=== PATIENT | female | born 1990 | race Caucasian/White ===

== ENCOUNTER 2016-08-09 07:06 | Emergency (ER) | payer BC, MEDICAID ==
[2016-08-09 07:20] VITALS: BP 100/85
[2016-08-09] MEDS ORDERED: Ondansetron ODT TAB* 4 MG PO ONE (07:38)
--- NOTE | 2016-08-09 07:39 | UC ---
Respiratory Complaint HPI - HPI Summary HPI Summary: SUDDEN ONSET LAST NIGHT OF COUGH, SOB AND NAUSEA. VOMITED THIS MORNING ON THE WAY TO WORK. FEELS VERY FATIGUED. NO FEVER, ST, EAR PAIN OR DIARRHEA. - History of Current Complaint Chief Complaint: UCRespiratory Stated Complaint: VOMITING SOB ASTHMA Time Seen by Provider: 08/09/16 07:21 Hx Obtained From: Patient Hx Last Menstrual Period: on nuva ring periosd irregular Onset/Duration: Sudden Onset, Lasting Hours, Still Present Timing: Constant Severity Initially: Moderate Severity Currently: Moderate Pain Intensity: 0 Pain Scale Used: 0-10 Numeric Character: Cough: Nonproductive Aggravating Factors: Nothing Alleviating Factors: Nothing Associated Signs And Symptoms: Positive: Dyspnea, Wheezing - Allergies/Home Medications Allergies/Adverse Reactions: Allergies Allergy/AdvReac Type Severity Reaction Status Date / Time No Known Drug Allergy Allergy Unknown Verified 12/06/15 10:34 Reaction Details Bees Allergy Severe Anaphylatic Uncoded 12/06/15 10:34 Shock Home Medications: Home Medications Dextromethorphan-Phenylephrine [Day Time Multi-Symptom Co 10-5-325 mg] 1 cap PO SEE INSTRUCTIONS 08/09/16 [History Confirmed 08/09/16] [id number] [Nyquil Severe Cold/Flu 5-6.25-10-325 mg/15Ml] 1 liq PO SEE INSTRUCTIONS 08/09/16 [History Confirmed 08/09/16] PMH/Surg Hx/FS Hx/Imm Hx Endocrine History Of: Denies: Diabetes, Thyroid Disease Cardiovascular History Of: Denies: Cardiac Disorders, Hypertension Respiratory History Of: Reports: Asthma Denies: COPD GI/ History Of: Denies: Ulcer - Surgical History Surgical History: Yes Surgery Procedure, Year, and Place: cse - 2007 - Family History Known Family History: Negative: Blood Disorder - Social History Alcohol Use: Rare Substance Use Type: None Smoking Status (MU): Heavy Every Day Tobacco Smoker - Immunization History Most Recent Influenza Vaccination: 08/14/14 Most Recent Tetanus Shot: 12/17/14 Most Recent Pneumonia Vaccination: never Review of Systems Constitutional: Negative ENT: Negative Respiratory: Shortness Of Breath, Cough Cardiovascular: Negative Gastrointestinal: Vomiting, Other - NAUSEA All Other Systems Reviewed And Are Negative: Yes Physical Exam Triage Information Reviewed: Yes Appearance: Well-Appearing, No Pain Distress, Well-Nourished Vital Signs: Initial Vital Signs Temp 98.7 F 08/09/16 07:15 Pulse 112 08/09/16 07:15 Resp 28 08/09/16 07:15 BP 100/85 08/09/16 07:15 Pulse Ox 93 08/09/16 07:15 Vital Signs Reviewed: Yes Eyes: Positive: Conjunctiva Clear ENT: Positive: Hearing grossly normal, Pharynx normal, TMs normal Neck: Positive: Supple, Nontender, No Lymphadenopathy Respiratory: Positive: No respiratory distress, No accessory muscle use, Wheezing - MILD EXPIRATORY WHEEZE Cardiovascular: Positive: Tachycardia Abdomen Description: Positive: Soft Musculoskeletal: Positive: No Edema Neurological: Positive: Alert Psychological: Positive: Age Appropriate Behavior Skin: Negative: rashes UC Diagnostic Evaluation - Laboratory O2 Sat by Pulse Oximetry: 93 Respiratory Course/Dx - Course Course Of Treatment: ADVISED TO MONITOR PULSE AND SEEK EVALUATION IF NOT COMING DOWN TO UNDER 100 OVER THE NEXT DAY OR SO. - Differential Dx/Diagnosis Provider Diagnoses: ACUTE VIRAL SYNDROME Discharge - Discharge Plan Condition: Stable Disposition: HOME Prescriptions: Albuterol HFA INHALER* [Ventolin HFA Inhaler*] 2 puff INH Q4H PRN #1 mdi PRN Reason: Shortness Of Breath Azithromycin [Azithromycin 500 MG TAB] 500 mg PO DAILY #5 tab Ondansetron ODT TAB* [Zofran Odt TAB*] 4 mg PO Q6H PRN #20 tab.odt PRN Reason: Nausea/Vomiting predniSONE TAB* [Deltasone TAB*] 40 mg PO DAILY #6 tab Patient Education Materials: Viral Syndrome (ED) Forms: *Work Release Additional Instructions: REST, HYDRATE, OTC MEDS NEEDED. IF YOU ARE NOT IMPROVING OVER THE NEXT 2-3 DAYS START THE ANTIBIOTIC. FOLLOW-UP WITH YOUR PCP AT [facility] IF YOU ARE NOT IMPROVING EXPECTED OVER THE NEXT 1-2 WEEKS.
== END 2016-08-09 07:48 | disposition home or self-care (01) ==
LOC: UCEAST 07:06
DX: B34.9 Viral infection, unspecified (principal); Z72.0 Tobacco use
CPT/HCPCS: 99212; A9270-GY; G0463